=== PATIENT | female | born 1970 | race Caucasian/White ===

== ENCOUNTER 2018-11-02 17:45 | Inpatient (IN) | payer BC, MEDICAID ==
[~2018-11-02] VITALS: Ht 167.6 cm; Wt 52.1 kg
--- NOTE | 2018-11-02 18:26 | NUR ---
PT HERE FOR GERD PAIN PER PT. PT REPORTS HER PAIN IS IN EPIGASTRIC REGION AND HAS NOT IMPROVED SINCE SHE STOPPED HER ABX. PT DENIES ANY TRUAMA OR RECENT ETOH INGESTION. PT CONNECTED TO MONITORS AND CALL LIGHT IN REACH. VSS. PT GIVEN EMESIS BAG. PT INFORMED TO NOT EAT OR DRINK ANYTHING UNTIL TEST HAVE RESLOVED.
[2018-11-02] MEDS ORDERED: SODIUM CHLORIDE 0.9% 1,000 ML IV ONE (18:27)
[2018-11-02] MEDS ORDERED: ONDANSETRON 2MG/ML, 2ML ONE (18:29)
[2018-11-02] MEDS ORDERED: ONDANSETRON 2MG/ML, 2ML IVPush ONE (18:30)
[2018-11-02] MEDS ORDERED: SODIUM CHLORIDE FLUSH 10ML SYR IVF ONE (18:30)
[2018-11-02] MEDS ORDERED: SODIUM CHLORIDE 0.9% 1,000ML IVBOLUS ONE (18:30)
--- NOTE | 2018-11-02 18:40 | NUR ---
PT MEDICATED, PIV IVF STARTED.
[2018-11-02 18:55] LABS: CHLORIDE 107 mmol/L (98-107)
[2018-11-02 19:00] LABS: ALANINE AMINOTRANSFERASE 29 U/L (12-78); ALBUMIN 4.5 g/dL (3.4-5.0); ALKALINE PHOSPHATASE 67 U/L (45-117); ANION GAP 8 mmol/L (5-15); BILIRUBIN,TOTAL 0.3 mg/dL (0.2-1.0); CALCIUM 9.8 mg/dL (8.5-10.1); CREATININE 0.95 mg/dL (0.55-1.02); TOTAL PROTEIN 8.5 g/dL (6.4-8.2)
[2018-11-02 19:16] LABS: BASOPHILS # (AUTO) 0.02 x10^3/uL (0-0.1); BASOPHILS % (AUTO) 0 % (0-1); EOSINOPHILS % (AUTO) 0 % (1-7); LYMPHOCYTES # (AUTO) 0.73 x10^3/uL (1-3.4); LYMPHOCYTES % (AUTO) 8 % (22-44); MD NO; MEAN CORPUSCULAR HEMOGLOBIN 33.3 pg (27.0-34.8); MEAN CORPUSCULAR HGB CONC 33.2 g/dL (32.4-35.8); MEAN CORPUSCULAR VOLUME 100.3 fL (80-100); MEAN PLATELET VOLUME 8.4 fL (7.4-10.4); MONOCYTES # (AUTO) 0.11 x10^3/uL (0.2-0.8); MONOCYTES % (AUTO) 1 % (2-9); NEUTROPHILS # (AUTO) 8.85 x10^3/uL (1.8-6.8); NEUTROPHILS % (AUTO) 91 % (42-75); PLATELET COUNT 341 x10^3/uL (130-400); RED BLOOD COUNT 4.59 x10^6/uL (3.82-5.3); RED CELL DISTRIBUTION WIDTH 13.6 % (9.6-15.2)
--- NOTE | 2018-11-02 20:10 | NUR ---
UA COLLECTED AND WALKED TO LAB.
[2018-11-02 20:46] LABS: MICROSCOPIC AUTO
[2018-11-02 20:49] LABS: CULTURE INDICATED? NO
[2018-11-02] MEDS ORDERED: OMNIPAQUE 350 MG/ML, 100ML BOTTLE ONE (21:08)
--- NOTE | 2018-11-02 22:28 | NUR ---
PT GIVEN ORAL SWABS FOR COMFORT.
[2018-11-02] MEDS ORDERED: SODIUM CHLORIDE FLUSH 10ML SYR IVF PRN (22:30)
[2018-11-02] MEDS ORDERED: DOCUSATE 100 MG CAPSULE PO PRN (23:00)
[2018-11-02] MEDS ORDERED: hydrALAzine 20 MG/ML, 1ML IVPush PRN (23:00)
[2018-11-02] MEDS ORDERED: PROMETHAZINE 25 MG/ML, 1ML IM PRN (23:00)
[2018-11-02] MEDS ORDERED: ACETAMINOPHEN 325 MG TABLET PO PRN (23:00)
[2018-11-02] MEDS ORDERED: ONDANSETRON ODT 4 MG PO PRN (23:00)
[2018-11-02 23:41] VITALS: BP 174/98
[2018-11-02] MEDS: ONDANSETRON 2MG/ML, 2ML IVPush PRN (23:56)
[2018-11-02] MEDS: SODIUM CHLORIDE 0.9% 1,000 ML IV SCH (23:56)
[2018-11-02] MEDS: HEPARIN 5,000 UNITS/ML, 1ML SQ SCH (23:57)
[2018-11-03 00:01] LABS: FREE T4 (FREE THYROXINE) 1.37 ng/dL (0.76-1.46)
[2018-11-03 03:00] VITALS: BP 101/61
[2018-11-03 05:40] LABS: BASOPHILS # (AUTO) 0.03 x10^3/uL (0-0.1); BASOPHILS % (AUTO) 0 % (0-1); EOSINOPHILS # (AUTO) 0.05 x10^3/uL (0-0.4); EOSINOPHILS % (AUTO) 1 % (1-7); LYMPHOCYTES # (AUTO) 2.03 x10^3/uL (1-3.4); LYMPHOCYTES % (AUTO) 21 % (22-44); MD NO; MEAN CORPUSCULAR HEMOGLOBIN 33.2 pg (27.0-34.8); MEAN CORPUSCULAR HGB CONC 33.3 g/dL (32.4-35.8); MEAN CORPUSCULAR VOLUME 99.9 fL (80-100); MONOCYTES # (AUTO) 0.78 x10^3/uL (0.2-0.8); MONOCYTES % (AUTO) 8 % (2-9); NEUTROPHILS # (AUTO) 6.92 x10^3/uL (1.8-6.8); NEUTROPHILS % (AUTO) 71 % (42-75); PLATELET COUNT 268 x10^3/uL (130-400); RED BLOOD COUNT 3.76 x10^6/uL (3.82-5.3); RED CELL DISTRIBUTION WIDTH 13.3 % (9.6-15.2)
[2018-11-03 05:41] LABS: CHLORIDE 112 mmol/L (98-107)
[2018-11-03 05:52] LABS: ALANINE AMINOTRANSFERASE 23 U/L (12-78); ALBUMIN 3.5 g/dL (3.4-5.0); ALKALINE PHOSPHATASE 52 U/L (45-117); ANION GAP 8 mmol/L (5-15); BILIRUBIN,TOTAL 0.3 mg/dL (0.2-1.0); CALCIUM 8.6 mg/dL (8.5-10.1); CHOL/HDL RATIO 3.9; CHOLESTEROL, TOTAL 149 mg/dL (140-239); CREATININE 0.66 mg/dL (0.55-1.02); HDL CHOL % 26 % (28-40); HDL CHOLESTEROL (DIRECT) 38 mg/dL (40-60); LDL CHOLESTEROL,CALCULATED 98 mg/dL (54-169); LDL/HDL RATIO 2.6 (0.5-3.0); TOTAL PROTEIN 6.5 g/dL (6.4-8.2); TRIGLYCERIDES 66 mg/dL (50-200); VLDL CHOLESTEROL 13 mg/dL (0-25)
[2018-11-03] MEDS: SODIUM CHLORIDE 0.9% 1,000 ML IV SCH (06:22)
[2018-11-03] MEDS: INSULIN LISPRO 100 UNITS/ML, PEN SQ-INSULIN SCH ×4 (07:18→21:19)
[2018-11-03 07:46] VITALS: BP 131/82
[2018-11-03] MEDS: HEPARIN 5,000 UNITS/ML, 1ML SQ SCH ×2 (07:47→15:56)
[2018-11-03] MEDS ORDERED: ERGOCALCIFEROL 50,000 UNIT CAPSULE PO SCH (10:30)
[2018-11-03] MEDS ORDERED: POTASSIUM CHLORIDE 40 MEQ in SODIUM CHLORIDE 0.9% 500 ML IV ONE (10:30)
[2018-11-03 13:55] VITALS: BP 125/78
[2018-11-03] MEDS: ONDANSETRON 2MG/ML, 2ML IVPush PRN (16:44)
[2018-11-03 20:32] VITALS: BP 116/69
[2018-11-03] MEDS: NICOTINE 7 MG/24 HR PATCH.TD24 TD SCH ×2 (21:00)
[2018-11-04] MEDS: HEPARIN 5,000 UNITS/ML, 1ML SQ SCH ×3 (00:02→16:00)
[2018-11-04 02:01] VITALS: BP 135/80
[2018-11-04] MEDS: INSULIN LISPRO 100 UNITS/ML, PEN SQ-INSULIN SCH ×3 (07:00→16:00)
[2018-11-04 07:36] VITALS: BP 130/82
[2018-11-04 14:00] VITALS: BP 126/82
[2018-11-04] MEDS ORDERED: ERGO500017 PO (18:12)
[2018-11-04 18:20] VITALS: BP 126/82
== END 2018-11-04 19:30 | disposition home or self-care (01) | DRG 392 ==
LOC: ED 22:32 → EDIP 22:35 → 4NOR 23:38
PROVIDERS: ADMIT Internal Medicine; ATTEND Internal Medicine
DX: K57.30 Diverticulosis of large intestine without perforation or abscess without bleeding (principal); D75.89 Other specified diseases of blood and blood-forming organs; E11.65 Type 2 diabetes mellitus with hyperglycemia; E86.0 Dehydration; F12.90 Cannabis use, unspecified, uncomplicated; F17.210 Nicotine dependence, cigarettes, uncomplicated; K29.00 Acute gastritis without bleeding; Z83.3 Family history of diabetes mellitus
CPT/HCPCS: 36415; 74177; 78264; 80053; 80061; 81001; 82306; 82607; 82962; 83036; 83690; 83735; 84439; 84443; 85025; 96374; G0378; J1644; J2405; J3480; Q9967; A9541; C9898; J0360; J7030; J7040

== ENCOUNTER 2019-08-29 15:43 | Emergency (ER) | payer BC ==
[~2019-08-29] VITALS: Ht 167.6 cm; Wt 46.0 kg
[~2019-08-29 15:43] MED LIST: ERGO500017 PO
[2019-08-29] MEDS ORDERED: SODIUM CHLORIDE 0.9% 1,000ML IVBOLUS ONE (16:30)
--- NOTE | 2019-08-29 16:33 | NUR ---
RECEIVED REPORT FROM JOSÉ HARPER, ASSUMING CARE FROM PT AT THIS TIME
[2019-08-29 16:42] LABS: BASOPHILS # (AUTO) 0.04 x10^3/uL (0-0.1); BASOPHILS % (AUTO) 0 % (0-1); EOSINOPHILS # (AUTO) 0.02 x10^3/uL (0-0.4); EOSINOPHILS % (AUTO) 0 % (1-7); LYMPHOCYTES # (AUTO) 2.45 x10^3/uL (1-3.4); LYMPHOCYTES % (AUTO) 16 % (22-44); MD NO; MEAN CORPUSCULAR HGB CONC 33.8 g/dL (32.4-35.8); MEAN CORPUSCULAR VOLUME 97.5 fL (80-100); MEAN PLATELET VOLUME 8.7 fL (7.4-10.4); MONOCYTES # (AUTO) 1.11 x10^3/uL (0.2-0.8); MONOCYTES % (AUTO) 7 % (2-9); NEUTROPHILS # (AUTO) 11.61 x10^3/uL (1.8-6.8); NEUTROPHILS % (AUTO) 76 % (42-75); PLATELET COUNT 270 x10^3/uL (130-400); RED BLOOD COUNT 4.94 x10^6/uL (3.82-5.3); RED CELL DISTRIBUTION WIDTH 12.9 % (9.6-15.2)
--- NOTE | 2019-08-29 16:52 | NUR ---
PT RESTING COMFORTABLY IN BED AT THIS TIME. HR HAS DECREASED WNL NOW. FLUIDS STILL RUNNING. CALL LIGHT WITHIN REACH. AWAITING LABS AND RECHECK AT THIS TIME
[2019-08-29 16:54] LABS: ALANINE AMINOTRANSFERASE 30 U/L (12-78); ALBUMIN 4.2 g/dL (3.4-5.0); ANION GAP 11 mmol/L (5-15); BILIRUBIN, DIRECT 0.3 mg/dL (0.1-0.2); CALCIUM 9.3 mg/dL (8.5-10.1); CHLORIDE 94 mmol/L (98-107)
[2019-08-29 16:59] LABS: ALKALINE PHOSPHATASE 79 U/L (45-117); BILIRUBIN,INDIRECT 0.8 mg/dL (0.0-2.0); BILIRUBIN,TOTAL 1.1 mg/dL (0.2-1.0); CREATININE 0.93 mg/dL (0.55-1.02); T4 (THYROXINE) 12.4 mcg/dL (4.8-13.9); TROPONIN I < 0.015 ng/mL (0.000-0.045)
[2019-08-29 17:19] VITALS: BP 100/74
--- NOTE | 2019-08-29 17:23 | NUR ---
PT UP TO RESTROOM FOR URINE SAMPLE. UPDATED ON PT TEMP. WILL CONTINUE TO MONITOR
--- NOTE | 2019-08-29 17:30 | NUR ---
UA COLLECTED AND SENT TO LAB. REPEAT EKG COMPLETED.
[2019-08-29 17:40] LABS: MICROSCOPIC AUTO
[2019-08-29 17:41] LABS: CULTURE INDICATED? YES
== END 2019-08-29 18:09 | disposition home or self-care (01) ==
LOC: ED 16:14
DX: R00.2 Palpitations (principal); N30.00 Acute cystitis without hematuria; R11.2 Nausea with vomiting, unspecified; R00.0 Tachycardia, unspecified; E87.6 Hypokalemia; E11.9 Type 2 diabetes mellitus without complications; F17.200 Nicotine dependence, unspecified, uncomplicated
CPT/HCPCS: 36415; 71045; 80048; 80076; 81001; 82040; 84436; 84443; 84484; 85025; 87077; 87086; 93005; 96360; 99285; J7030

== ENCOUNTER 2019-09-02 09:47 | Inpatient (IN) | payer BC ==
[~2019-09-02] VITALS: Ht 167.6 cm; Wt 50.1 kg
[2019-09-02] MEDS ORDERED: ONDANSETRON 2MG/ML, 2ML ONE (10:20)
[2019-09-02] MEDS ORDERED: MORPHINE SULFATE 4 MG/ML, 1ML ONE ×2 (10:20→12:08)
[2019-09-02] MEDS ORDERED: SODIUM CHLORIDE FLUSH 10ML SYR IVF ONE (10:30)
[2019-09-02] MEDS ORDERED: SODIUM CHLORIDE 0.9% 1,000ML IVBOLUS ONE (10:30)
[2019-09-02] MEDS ORDERED: ONDANSETRON 2MG/ML, 2ML IVPush ONE (10:30)
[2019-09-02] MEDS: MORPHINE SULFATE 4 MG/ML, 1ML IVPush PRN ×2 (10:36→12:14)
--- NOTE | 2019-09-02 10:50 | NUR ---
PT HAS CO OF ABDOMINAL PAIN IN LOWER QUADRENT. PT DENIES N/V/D . STARTED YESTERDAY. PT STATES PAIN IS 10/10. IV ESTABLISHED, IVF, MEDICATED PER ORDERS. VSS
[2019-09-02 11:16] LABS: ALANINE AMINOTRANSFERASE 23 U/L (12-78); ALBUMIN 2.8 g/dL (3.4-5.0); ANION GAP 8 mmol/L (5-15); CALCIUM 8.2 mg/dL (8.5-10.1); CHLORIDE 100 mmol/L (98-107); CREATININE 0.67 mg/dL (0.55-1.02)
[2019-09-02 11:17] LABS: MEAN CORPUSCULAR HEMOGLOBIN 32.8 pg (27.0-34.8); MEAN CORPUSCULAR HGB CONC 32.9 g/dL (32.4-35.8); MEAN CORPUSCULAR VOLUME 99.7 fL (80-100); MEAN PLATELET VOLUME 8.4 fL (7.4-10.4); PLATELET COUNT 202 x10^3/uL (130-400); RED BLOOD COUNT 3.99 x10^6/uL (3.82-5.3); RED CELL DISTRIBUTION WIDTH 12.7 % (9.6-15.2)
[2019-09-02 11:18] LABS: ALKALINE PHOSPHATASE 55 U/L (45-117); BILIRUBIN,TOTAL 0.8 mg/dL (0.2-1.0); TOTAL PROTEIN 5.8 g/dL (6.4-8.2)
[2019-09-02 11:30] LABS: BASOPHILS # (AUTO) 0.02 x10^3/uL (0-0.1); BASOPHILS % (AUTO) 0 % (0-1); EOSINOPHILS # (AUTO) 0.01 x10^3/uL (0-0.4); EOSINOPHILS % (AUTO) 0 % (1-7); LYMPHOCYTES # (AUTO) 1.26 x10^3/uL (1-3.4); LYMPHOCYTES % (AUTO) 8 % (22-44); MD SCAN; MONOCYTES # (AUTO) 0.55 x10^3/uL (0.2-0.8); MONOCYTES % (AUTO) 3 % (2-9); NEUTROPHILS # (AUTO) 14.08 x10^3/uL (1.8-6.8); NEUTROPHILS % (AUTO) 89 % (42-75)
[2019-09-02 11:47] LABS: MICROSCOPIC NOT IND
[2019-09-02 11:51] LABS: CULTURE INDICATED? NO
[2019-09-02] MEDS ORDERED: POTASSIUM CHLORIDE 40 MEQ in SODIUM CHLORIDE 0.9% 500 ML IV ONE (12:00)
--- NOTE | 2019-09-02 12:00 | NUR ---
MEDICATED FOR PAIN PRN, VSS. NO NEEDS A THIS TIME.
[2019-09-02] MEDS ORDERED: OMNIPAQUE 350 MG/ML, 100ML BOTTLE ONE (12:08)
[2019-09-02] MEDS ORDERED: METRONIDAZOLE PMX 500MG/100ML 100 ML IVPB ONE (12:30)
[2019-09-02] MEDS ORDERED: AMPICILLIN/SULBACTAM 3 GM in SODIUM CHLORIDE 0.9% 100 ML IV ONE (12:30)
[2019-09-02] MEDS: NS + 20MEQ KCL 1,000 ML IV SCH ×2 (12:38→21:09)
[2019-09-02] MEDS ORDERED: METRONIDAZOLE PMX 500MG/100ML 100 ML ONE (12:47)
[2019-09-02] MEDS ORDERED: ACETAMINOPHEN 325 MG TABLET PO PRN (13:00)
[2019-09-02] MEDS ORDERED: IBUPROFEN 600 MG TABLET PO PRN (13:00)
[2019-09-02] MEDS ORDERED: GABAPENTIN 300 MG CAPSULE PO PRN (13:00)
[2019-09-02] MEDS ORDERED: ONDANSETRON ODT 4 MG PO PRN (13:00)
[2019-09-02] MEDS ORDERED: hydrALAzine 20 MG/ML, 1ML IVPush PRN (13:00)
[2019-09-02] MEDS ORDERED: morphine SULFATE 10 MG/ML, 1ML IVPush PRN (13:00)
--- NOTE | 2019-09-02 13:03 | NUR ---
NO BLOOD CULTURES NEED PRIOR TO ABX, SECOND PIV STARTED. PT GIVEN MOUTH SWABS. NO OTHER NEEDS AT THIS TIME
--- NOTE | 2019-09-02 13:24 | NUR ---
REPORT TO [facility]
[2019-09-02] MEDS ORDERED: POTASSIUM CHLORIDE 10% 20 MEQ/15 ML UDC PO ONE (14:30)
[2019-09-02] MEDS ORDERED: POTASSIUM CHLORIDE 20 MEQ PACKET PO ONE (15:00)
[2019-09-02] MEDS: NITROFURANTOIN (MACROBID) 100 MG CAPSULE PO SCH ×2 (15:12→21:08)
[2019-09-02] MEDS: KETOROLAC 30 MG/1 ML IV PRN ×2 (15:13→21:11)
[2019-09-02 15:16] VITALS: BP 102/67
[2019-09-02 19:13] VITALS: BP 90/61
[2019-09-03 01:03] VITALS: BP 114/73
[2019-09-03] MEDS: NS + 20MEQ KCL 1,000 ML IV SCH ×3 (04:55→20:28)
[2019-09-03] MEDS: KETOROLAC 30 MG/1 ML IV PRN ×2 (05:00→16:43)
[2019-09-03 05:24] LABS: BASOPHILS # (AUTO) 0.01 x10^3/uL (0-0.1); BASOPHILS % (AUTO) 0 % (0-1); EOSINOPHILS # (AUTO) 0.03 x10^3/uL (0-0.4); EOSINOPHILS % (AUTO) 0 % (1-7); LYMPHOCYTES # (AUTO) 0.73 x10^3/uL (1-3.4); LYMPHOCYTES % (AUTO) 6 % (22-44); MD NO; MEAN CORPUSCULAR HEMOGLOBIN 33.2 pg (27.0-34.8); MEAN CORPUSCULAR HGB CONC 33.2 g/dL (32.4-35.8); MEAN CORPUSCULAR VOLUME 99.8 fL (80-100); MEAN PLATELET VOLUME 9.5 fL (7.4-10.4); MONOCYTES % (AUTO) 6 % (2-9); NEUTROPHILS # (AUTO) 10.77 x10^3/uL (1.8-6.8); NEUTROPHILS % (AUTO) 88 % (42-75); PLATELET COUNT 194 x10^3/uL (130-400); RED BLOOD COUNT 4.01 x10^6/uL (3.82-5.3); RED CELL DISTRIBUTION WIDTH 13.6 % (9.6-15.2)
[2019-09-03 05:33] LABS: ALANINE AMINOTRANSFERASE 19 U/L (12-78); ALBUMIN 2.8 g/dL (3.4-5.0); ANION GAP 7 mmol/L (5-15); CALCIUM 8.2 mg/dL (8.5-10.1); CHLORIDE 105 mmol/L (98-107); CREATININE 0.52 mg/dL (0.55-1.02)
[2019-09-03 05:35] LABS: ALKALINE PHOSPHATASE 59 U/L (45-117); BILIRUBIN,TOTAL 0.5 mg/dL (0.2-1.0); TOTAL PROTEIN 5.9 g/dL (6.4-8.2)
[2019-09-03 08:13] VITALS: BP 112/71
[2019-09-03 12:29] VITALS: BP 116/75
[2019-09-03] MEDS: METRONIDAZOLE PMX 500MG/100ML 100 ML IV SCH (16:41)
[2019-09-03] MEDS: ENOXAPARIN 40 MG/0.4 ML SQ SCH (16:43)
[2019-09-03] MEDS: CEFTRIAXONE PMX 1GM/50ML 50 ML IV SCH (18:15)
[2019-09-03 21:29] VITALS: BP 125/79
[2019-09-04] MEDS: KETOROLAC 30 MG/1 ML IV PRN ×2 (00:04→15:50)
[2019-09-04 02:01] VITALS: BP 112/74
[2019-09-04 05:17] LABS: BASOPHILS # (AUTO) 0.03 x10^3/uL (0-0.1); BASOPHILS % (AUTO) 0 % (0-1); EOSINOPHILS # (AUTO) 0.15 x10^3/uL (0-0.4); EOSINOPHILS % (AUTO) 2 % (1-7); LYMPHOCYTES % (AUTO) 12 % (22-44); MD NO; MEAN CORPUSCULAR HEMOGLOBIN 32.7 pg (27.0-34.8); MEAN CORPUSCULAR HGB CONC 32.8 g/dL (32.4-35.8); MEAN CORPUSCULAR VOLUME 99.5 fL (80-100); MEAN PLATELET VOLUME 9.2 fL (7.4-10.4); MONOCYTES # (AUTO) 0.62 x10^3/uL (0.2-0.8); MONOCYTES % (AUTO) 6 % (2-9); NEUTROPHILS # (AUTO) 8.27 x10^3/uL (1.8-6.8); NEUTROPHILS % (AUTO) 81 % (42-75); PLATELET COUNT 201 x10^3/uL (130-400); RED BLOOD COUNT 3.88 x10^6/uL (3.82-5.3); RED CELL DISTRIBUTION WIDTH 13.6 % (9.6-15.2)
[2019-09-04 05:21] LABS: ALBUMIN 2.3 g/dL (3.4-5.0); ANION GAP 7 mmol/L (5-15); CALCIUM 7.8 mg/dL (8.5-10.1); CHLORIDE 109 mmol/L (98-107)
[2019-09-04 05:26] LABS: ALANINE AMINOTRANSFERASE 17 U/L (12-78); ALKALINE PHOSPHATASE 66 U/L (45-117); BILIRUBIN,TOTAL 0.4 mg/dL (0.2-1.0); CREATININE 0.52 mg/dL (0.55-1.02); TOTAL PROTEIN 5.3 g/dL (6.4-8.2)
[2019-09-04] MEDS: NS + 20MEQ KCL 1,000 ML IV SCH (05:47)
[2019-09-04 07:04] VITALS: BP 135/85
[2019-09-04] MEDS: METRONIDAZOLE PMX 500MG/100ML 100 ML IV SCH ×3 (07:58→16:49)
[2019-09-04] MEDS ORDERED: MAGNESIUM SULFATE PMX 2GM/50ML 50 ML IV ONE (09:00)
[2019-09-04] MEDS ORDERED: POTASSIUM PHOSPHATE 44 MEQ in SODIUM CHLORIDE 0.9% 500 ML IV ONE (09:00)
[2019-09-04 12:16] VITALS: BP 146/99
[2019-09-04] MEDS: ENOXAPARIN 40 MG/0.4 ML SQ SCH (16:49)
[2019-09-04] MEDS: CEFTRIAXONE PMX 1GM/50ML 50 ML IV SCH (18:07)
[2019-09-04 19:36] VITALS: BP 117/76
[2019-09-05] MEDS: METRONIDAZOLE PMX 500MG/100ML 100 ML IV SCH ×3 (00:26→16:57)
[2019-09-05 01:12] VITALS: BP 131/80
[2019-09-05] MEDS: ONDANSETRON 2MG/ML, 2ML IVPush PRN ×4 (02:24→23:40)
[2019-09-05 05:12] LABS: BASOPHILS # (AUTO) 0.06 x10^3/uL (0-0.1); BASOPHILS % (AUTO) 0 % (0-1); EOSINOPHILS # (AUTO) 0.08 x10^3/uL (0-0.4); EOSINOPHILS % (AUTO) 1 % (1-7); LYMPHOCYTES # (AUTO) 0.59 x10^3/uL (1-3.4); LYMPHOCYTES % (AUTO) 4 % (22-44); MD NO; MEAN CORPUSCULAR HGB CONC 33.4 g/dL (32.4-35.8); MEAN CORPUSCULAR VOLUME 98.7 fL (80-100); MEAN PLATELET VOLUME 9.4 fL (7.4-10.4); MONOCYTES # (AUTO) 0.73 x10^3/uL (0.2-0.8); MONOCYTES % (AUTO) 5 % (2-9); NEUTROPHILS # (AUTO) 12.95 x10^3/uL (1.8-6.8); NEUTROPHILS % (AUTO) 90 % (42-75); PLATELET COUNT 269 x10^3/uL (130-400); RED BLOOD COUNT 4.01 x10^6/uL (3.82-5.3); RED CELL DISTRIBUTION WIDTH 13.6 % (9.6-15.2)
[2019-09-05 05:18] LABS: ANION GAP 8 mmol/L (5-15); CHLORIDE 102 mmol/L (98-107); CREATININE 0.44 mg/dL (0.55-1.02)
[2019-09-05] MEDS ORDERED: PROMETHAZINE 25 MG/ML, 1ML IM ONE (06:00)
[2019-09-05 06:59] VITALS: BP 170/91
[2019-09-05] MEDS ORDERED: MAGNESIUM SULFATE PMX 2GM/50ML 50 ML IV ONE (08:30)
[2019-09-05] MEDS: MAGNESIUM OXIDE 400 MG TABLET PO SCH (09:52)
[2019-09-05 11:21] LABS: CLOSTRIDIUM DIFFICILE ANTIGEN NEGATIVE; CLOSTRIDIUM DIFFICILE TOXIN NEGATIVE (Negative)
[2019-09-05] MEDS: POTASSIUM CHLORIDE 20 MEQ TAB.ER.PRT PO SCH ×2 (12:06→16:57)
[2019-09-05 13:32] VITALS: BP 158/97
[2019-09-05] MEDS: NICOTINE 14MG/24 HR PATCH.TD24 TD SCH (13:46)
[2019-09-05] MEDS: ENOXAPARIN 40 MG/0.4 ML SQ SCH (16:57)
[2019-09-05] MEDS: LACTOBACILLUS CHEW TABLET PO SCH ×2 (16:57→20:24)
[2019-09-05] MEDS: CEFTRIAXONE PMX 1GM/50ML 50 ML IV SCH (18:19)
[2019-09-05 19:44] VITALS: BP 161/95
[2019-09-06] MEDS: METRONIDAZOLE PMX 500MG/100ML 100 ML IV SCH ×3 (00:59→16:55)
[2019-09-06] MEDS: KETOROLAC 30 MG/1 ML IV PRN ×2 (01:05→14:12)
[2019-09-06 01:31] VITALS: BP 126/85
[2019-09-06 05:40] LABS: BASOPHILS # (AUTO) 0.01 x10^3/uL (0-0.1); BASOPHILS % (AUTO) 0 % (0-1); EOSINOPHILS # (AUTO) 0.01 x10^3/uL (0-0.4); EOSINOPHILS % (AUTO) 0 % (1-7); LYMPHOCYTES # (AUTO) 0.93 x10^3/uL (1-3.4); LYMPHOCYTES % (AUTO) 6 % (22-44); MD NO; MEAN CORPUSCULAR HEMOGLOBIN 33.1 pg (27.0-34.8); MEAN CORPUSCULAR HGB CONC 33.8 g/dL (32.4-35.8); MEAN PLATELET VOLUME 8.6 fL (7.4-10.4); MONOCYTES % (AUTO) 5 % (2-9); NEUTROPHILS # (AUTO) 12.81 x10^3/uL (1.8-6.8); NEUTROPHILS % (AUTO) 89 % (42-75); PLATELET COUNT 307 x10^3/uL (130-400); RED BLOOD COUNT 4.24 x10^6/uL (3.82-5.3); RED CELL DISTRIBUTION WIDTH 13.1 % (9.6-15.2)
[2019-09-06 05:54] LABS: ANION GAP 7 mmol/L (5-15); CALCIUM 8.1 mg/dL (8.5-10.1); CHLORIDE 101 mmol/L (98-107)
[2019-09-06 05:55] LABS: CREATININE 0.57 mg/dL (0.55-1.02)
[2019-09-06 06:52] VITALS: BP 122/82
[2019-09-06] MEDS: POTASSIUM CHLORIDE 20 MEQ TAB.ER.PRT PO SCH (09:09)
[2019-09-06] MEDS: MAGNESIUM OXIDE 400 MG TABLET PO SCH (09:09)
[2019-09-06] MEDS: LACTOBACILLUS CHEW TABLET PO SCH ×3 (09:09→20:22)
[2019-09-06] MEDS: NICOTINE 14MG/24 HR PATCH.TD24 TD SCH (14:06)
[2019-09-06] MEDS: ONDANSETRON 2MG/ML, 2ML IVPush PRN ×2 (14:06→22:24)
[2019-09-06 15:59] VITALS: BP 155/104
[2019-09-06] MEDS: ENOXAPARIN 40 MG/0.4 ML SQ SCH (16:51)
[2019-09-06] MEDS: OXYcodone IR 5MG TABLET PO PRN (16:52)
[2019-09-06] MEDS: CEFTRIAXONE PMX 1GM/50ML 50 ML IV SCH (18:16)
[2019-09-06 19:52] VITALS: BP 149/98
[2019-09-07] MEDS: METRONIDAZOLE PMX 500MG/100ML 100 ML IV SCH ×3 (00:41→16:48)
[2019-09-07] MEDS: OXYcodone IR 5MG TABLET PO PRN ×3 (00:45→20:00)
[2019-09-07 00:47] VITALS: BP 129/103
[2019-09-07 06:25] LABS: MEAN CORPUSCULAR HEMOGLOBIN 32.9 pg (27.0-34.8); MEAN CORPUSCULAR HGB CONC 33.3 g/dL (32.4-35.8); MEAN CORPUSCULAR VOLUME 98.7 fL (80-100); MEAN PLATELET VOLUME 7.9 fL (7.4-10.4); PLATELET COUNT 370 x10^3/uL (130-400); RED BLOOD COUNT 4.14 x10^6/uL (3.82-5.3)
[2019-09-07 06:37] LABS: CHLORIDE 98 mmol/L (98-107)
[2019-09-07 06:40] LABS: BASOPHILS # (AUTO) 0.01 x10^3/uL (0-0.1); BASOPHILS % (AUTO) 0 % (0-1); EOSINOPHILS # (AUTO) 0.01 x10^3/uL (0-0.4); EOSINOPHILS % (AUTO) 0 % (1-7); LYMPHOCYTES # (AUTO) 0.99 x10^3/uL (1-3.4); LYMPHOCYTES % (AUTO) 6 % (22-44); MD SCAN; MONOCYTES # (AUTO) 0.89 x10^3/uL (0.2-0.8); MONOCYTES % (AUTO) 5 % (2-9); NEUTROPHILS # (AUTO) 14.89 x10^3/uL (1.8-6.8); NEUTROPHILS % (AUTO) 89 % (42-75)
[2019-09-07 06:41] LABS: ANION GAP 8 mmol/L (5-15); CREATININE 0.46 mg/dL (0.55-1.02)
[2019-09-07 06:47] VITALS: BP 131/89
[2019-09-07] MEDS: LACTOBACILLUS CHEW TABLET PO SCH ×3 (07:45→20:00)
[2019-09-07] MEDS: MAGNESIUM OXIDE 400 MG TABLET PO SCH (07:45)
[2019-09-07 13:27] VITALS: BP 143/96
[2019-09-07] MEDS: NICOTINE 14MG/24 HR PATCH.TD24 TD SCH (13:53)
[2019-09-07] MEDS: ENOXAPARIN 40 MG/0.4 ML SQ SCH (16:44)
[2019-09-07] MEDS: ONDANSETRON 2MG/ML, 2ML IVPush PRN (16:47)
[2019-09-07 18:43] VITALS: BP 150/101
[2019-09-07] MEDS: CEFTRIAXONE PMX 1GM/50ML 50 ML IV SCH (18:45)
[2019-09-08 00:47] VITALS: BP 151/100
[2019-09-08] MEDS: METRONIDAZOLE PMX 500MG/100ML 100 ML IV SCH ×3 (00:51→19:30)
[2019-09-08 00:55] VITALS: BP 156/99
[2019-09-08 01:23] VITALS: BP 135/85
[2019-09-08 05:01] LABS: MEAN CORPUSCULAR HEMOGLOBIN 33.1 pg (27.0-34.8); MEAN CORPUSCULAR HGB CONC 33.3 g/dL (32.4-35.8); MEAN CORPUSCULAR VOLUME 99.2 fL (80-100); MEAN PLATELET VOLUME 7.8 fL (7.4-10.4); PLATELET COUNT 407 x10^3/uL (130-400); RED CELL DISTRIBUTION WIDTH 13.3 % (9.6-15.2)
[2019-09-08 05:12] LABS: ALBUMIN 2.4 g/dL (3.4-5.0); ANION GAP 9 mmol/L (5-15); CALCIUM 8.3 mg/dL (8.5-10.1); CHLORIDE 95 mmol/L (98-107)
[2019-09-08 05:15] LABS: ALANINE AMINOTRANSFERASE 26 U/L (12-78); ALKALINE PHOSPHATASE 71 U/L (45-117); BILIRUBIN,TOTAL 0.4 mg/dL (0.2-1.0); CREATININE 0.45 mg/dL (0.55-1.02)
[2019-09-08 05:59] LABS: BASOPHILS % (AUTO) 0 % (0-1); EOSINOPHILS # (AUTO) 0.01 x10^3/uL (0-0.4); EOSINOPHILS % (AUTO) 0 % (1-7); LYMPHOCYTES # (AUTO) 1.08 x10^3/uL (1-3.4); LYMPHOCYTES % (AUTO) 6 % (22-44); MD SCAN; MONOCYTES # (AUTO) 0.89 x10^3/uL (0.2-0.8); MONOCYTES % (AUTO) 5 % (2-9); NEUTROPHILS # (AUTO) 16.42 x10^3/uL (1.8-6.8); NEUTROPHILS % (AUTO) 89 % (42-75)
[2019-09-08 06:59] VITALS: BP 134/90
[2019-09-08] MEDS ORDERED: SINCALIDE (KINEVAC) 5 MCG ONE (09:03)
[2019-09-08] MEDS ORDERED: GADOTERATE 7.5 MMOL/15 ML VIAL ONE (10:52)
[2019-09-08] MEDS: MAGNESIUM OXIDE 400 MG TABLET PO SCH (11:21)
[2019-09-08] MEDS: LACTOBACILLUS CHEW TABLET PO SCH ×3 (11:21→20:05)
[2019-09-08] MEDS: NICOTINE 14MG/24 HR PATCH.TD24 TD SCH (14:20)
[2019-09-08] MEDS: OXYcodone IR 5MG TABLET PO PRN (14:20)
[2019-09-08 14:23] VITALS: BP 131/92
[2019-09-08] MEDS: ONDANSETRON 2MG/ML, 2ML IVPush PRN (17:45)
[2019-09-08] MEDS: ENOXAPARIN 40 MG/0.4 ML SQ SCH (17:47)
[2019-09-08] MEDS: MORPHINE SULFATE 4 MG/ML, 1ML IVPush PRN (17:47)
[2019-09-08] MEDS: CEFTRIAXONE PMX 1GM/50ML 50 ML IV SCH (17:48)
[2019-09-08 18:44] VITALS: BP 127/81
[2019-09-09 02:11] VITALS: BP 143/86
[2019-09-09] MEDS: METRONIDAZOLE PMX 500MG/100ML 100 ML IV SCH ×3 (03:01→19:47)
[2019-09-09 07:10] VITALS: BP 147/81
[2019-09-09 07:40] LABS: MEAN CORPUSCULAR HEMOGLOBIN 32.8 pg (27.0-34.8); MEAN CORPUSCULAR HGB CONC 33.2 g/dL (32.4-35.8); MEAN CORPUSCULAR VOLUME 98.8 fL (80-100); MEAN PLATELET VOLUME 7.3 fL (7.4-10.4); PLATELET COUNT 453 x10^3/uL (130-400); RED BLOOD COUNT 3.94 x10^6/uL (3.82-5.3); RED CELL DISTRIBUTION WIDTH 13.1 % (9.6-15.2)
[2019-09-09 07:47] LABS: ANION GAP 7 mmol/L (5-15); CALCIUM 8.1 mg/dL (8.5-10.1); CHLORIDE 98 mmol/L (98-107)
[2019-09-09 07:48] LABS: CREATININE 0.42 mg/dL (0.55-1.02)
[2019-09-09 08:07] LABS: BASOPHILS # (AUTO) 0.01 x10^3/uL (0-0.1); BASOPHILS % (AUTO) 0 % (0-1); EOSINOPHILS # (AUTO) 0.01 x10^3/uL (0-0.4); EOSINOPHILS % (AUTO) 0 % (1-7); LYMPHOCYTES # (AUTO) 1.17 x10^3/uL (1-3.4); LYMPHOCYTES % (AUTO) 7 % (22-44); MD SCAN; MONOCYTES # (AUTO) 0.56 x10^3/uL (0.2-0.8); MONOCYTES % (AUTO) 3 % (2-9); NEUTROPHILS # (AUTO) 15.94 x10^3/uL (1.8-6.8); NEUTROPHILS % (AUTO) 90 % (42-75)
[2019-09-09] MEDS: MAGNESIUM OXIDE 400 MG TABLET PO SCH (09:00)
[2019-09-09] MEDS: LACTOBACILLUS CHEW TABLET PO SCH ×3 (09:00→20:26)
[2019-09-09] MEDS: ENOXAPARIN 40 MG/0.4 ML SQ SCH (11:46)
[2019-09-09 12:29] LABS: INTERNATIONAL NORMALIZED RATIO 1.11 (0.93-1.1); PROTHROMBIN TIME 11.8 Seconds (9.6-11.5)
[2019-09-09 13:55] VITALS: BP 142/85
[2019-09-09] MEDS: NICOTINE 14MG/24 HR PATCH.TD24 TD SCH (13:59)
[2019-09-09] MEDS: CEFTRIAXONE PMX 1GM/50ML 50 ML IV SCH (18:13)
[2019-09-09 18:38] VITALS: BP 109/72
[2019-09-10 00:02] VITALS: BP 128/79
[2019-09-10] MEDS: METRONIDAZOLE PMX 500MG/100ML 100 ML IV SCH ×3 (03:22→22:17)
[2019-09-10 05:20] LABS: BASOPHILS # (AUTO) 0.01 x10^3/uL (0-0.1); BASOPHILS % (AUTO) 0 % (0-1); EOSINOPHILS # (AUTO) 0.04 x10^3/uL (0-0.4); EOSINOPHILS % (AUTO) 0 % (1-7); LYMPHOCYTES # (AUTO) 1.33 x10^3/uL (1-3.4); LYMPHOCYTES % (AUTO) 8 % (22-44); MD NO; MEAN CORPUSCULAR HEMOGLOBIN 32.6 pg (27.0-34.8); MEAN CORPUSCULAR HGB CONC 32.9 g/dL (32.4-35.8); MEAN PLATELET VOLUME 7.5 fL (7.4-10.4); MONOCYTES # (AUTO) 0.85 x10^3/uL (0.2-0.8); MONOCYTES % (AUTO) 5 % (2-9); NEUTROPHILS # (AUTO) 15.14 x10^3/uL (1.8-6.8); NEUTROPHILS % (AUTO) 87 % (42-75); PLATELET COUNT 427 x10^3/uL (130-400); RED BLOOD COUNT 3.71 x10^6/uL (3.82-5.3); RED CELL DISTRIBUTION WIDTH 13.3 % (9.6-15.2)
[2019-09-10 05:26] LABS: ALANINE AMINOTRANSFERASE 25 U/L (12-78); ALBUMIN 2.4 g/dL (3.4-5.0); ANION GAP 7 mmol/L (5-15); CALCIUM 8.1 mg/dL (8.5-10.1); CHLORIDE 99 mmol/L (98-107); CREATININE 0.47 mg/dL (0.55-1.02)
[2019-09-10 05:28] LABS: ALKALINE PHOSPHATASE 60 U/L (45-117); BILIRUBIN,TOTAL 0.5 mg/dL (0.2-1.0); TOTAL PROTEIN 5.6 g/dL (6.4-8.2)
[2019-09-10 07:33] VITALS: BP 123/83
[2019-09-10] MEDS: LACTOBACILLUS CHEW TABLET PO SCH ×3 (09:00→21:00)
[2019-09-10] MEDS: MAGNESIUM OXIDE 400 MG TABLET PO SCH (09:00)
[2019-09-10] MEDS ORDERED: BUPIVACAINE/PF-EPI 0.5% 1:200K ONE (10:02)
[2019-09-10] MEDS ORDERED: FENTANYL PF 250 MCG/5ML ONE (10:53)
[2019-09-10] MEDS ORDERED: MIDAZOLAM 1 MG/ML, 2ML ONE (10:53)
[2019-09-10] MEDS ORDERED: CEFOTETAN PMX 2GM/50ML 50 ML ONE (11:02)
[2019-09-10] MEDS ORDERED: PHENYLEPHRINE 10 MG/ML ONE (11:02)
[2019-09-10] MEDS ORDERED: NEOSTIGMINE 1 MG/ML, 10ML ONE ×2 (11:04→12:11)
[2019-09-10] MEDS ORDERED: ROCURONIUM 10MG/ML,5ML ONE (11:04)
[2019-09-10] MEDS ORDERED: SUCCINYLCHOLINE 20 MG/ML, 10ML ONE (11:04)
[2019-09-10] MEDS ORDERED: GLYCOPYRROLATE 0.2MG/1ML, 5ML ONE (11:04)
[2019-09-10] MEDS ORDERED: PROPOFOL 10 MG/ML, 20ML ONE (11:04)
[2019-09-10] MEDS ORDERED: ONDANSETRON 2MG/ML, 2ML ONE (11:04)
[2019-09-10] MEDS ORDERED: DEXAMETHASONE 4 MG/ML, 1ML ONE (11:04)
[2019-09-10] MEDS ORDERED: HALOPERIDOL 5 MG/ML IV PRN (11:30)
[2019-09-10] MEDS ORDERED: HYDROmorphone 2 MG/ML, 1ML IVPush PRN (11:30)
[2019-09-10] MEDS ORDERED: LABETALOL 5MG/ML, 20ML IV PRN (11:30)
[2019-09-10] MEDS ORDERED: MEPERIDINE/PF 25MG/ML,1ML IVPush PRN (11:30)
[2019-09-10] MEDS ORDERED: PROMETHAZINE 25 MG/ML, 1ML IV PRN (11:30)
[2019-09-10] MEDS ORDERED: hydrALAzine 20 MG/ML, 1ML IV PRN (11:30)
[2019-09-10] MEDS ORDERED: MORPHINE SULFATE 4 MG/ML, 1ML IVPush PRN (11:30)
[2019-09-10] MEDS ORDERED: OXYcodone 5 MG/5 ML ORAL.SOL UDC PO PRN (11:30)
[2019-09-10] MEDS ORDERED: BUPIVACAINE/PF-EPI 0.5% 1:200K INFIL ONE (11:57)
[2019-09-10] MEDS: ENOXAPARIN 40 MG/0.4 ML SQ SCH (12:00)
[2019-09-10] MEDS ORDERED: KETOROLAC 30 MG/1 ML ONE (12:08)
[2019-09-10] MEDS ORDERED: SUGAMMADEX 200 MG/2 ML IVPush ONE (12:11)
[2019-09-10] MEDS ORDERED: FENTANYL PF 100 MCG/2ML ONE (12:33)
[2019-09-10] MEDS ORDERED: OXYcodone 5 MG/5 ML ORAL.SOL UDC ONE (12:33)
[2019-09-10] MEDS: FENTANYL PF 100 MCG/2ML IV PRN ×2 (12:50→13:00)
[2019-09-10 13:35] VITALS: BP 106/71
[2019-09-10] MEDS: NICOTINE 14MG/24 HR PATCH.TD24 TD SCH (16:05)
[2019-09-10] MEDS: D5%-0.45NACL+KCL 20MEQ 1,000 ML IV SCH (16:05)
[2019-09-10] MEDS: MORPHINE SULFATE 4 MG/ML, 1ML IVPush PRN ×2 (17:55→23:33)
[2019-09-10 18:17] VITALS: BP 102/70
[2019-09-10] MEDS: CEFTRIAXONE PMX 1GM/50ML 50 ML IV SCH (18:36)
[2019-09-11 00:09] VITALS: BP 117/75
[2019-09-11] MEDS: ONDANSETRON 2MG/ML, 2ML IVPush PRN (01:30)
[2019-09-11] MEDS: OXYcodone IR 5MG TABLET PO PRN (01:31)
[2019-09-11] MEDS: D5%-0.45NACL+KCL 20MEQ 1,000 ML IV SCH ×2 (04:39→14:00)
[2019-09-11 05:05] LABS: MEAN CORPUSCULAR HEMOGLOBIN 32.8 pg (27.0-34.8); MEAN CORPUSCULAR VOLUME 99.2 fL (80-100); MEAN PLATELET VOLUME 7.4 fL (7.4-10.4); PLATELET COUNT 435 x10^3/uL (130-400); RED BLOOD COUNT 3.29 x10^6/uL (3.82-5.3); RED CELL DISTRIBUTION WIDTH 13.6 % (9.6-15.2)
[2019-09-11 05:17] LABS: ALANINE AMINOTRANSFERASE 31 U/L (12-78); ALBUMIN 2.2 g/dL (3.4-5.0); ANION GAP 5 mmol/L (5-15); CALCIUM 7.9 mg/dL (8.5-10.1); CHLORIDE 101 mmol/L (98-107); CREATININE 0.47 mg/dL (0.55-1.02)
[2019-09-11 05:18] LABS: BASOPHILS # (AUTO) 0.01 x10^3/uL (0-0.1); BASOPHILS % (AUTO) 0 % (0-1); EOSINOPHILS # (AUTO) 0.02 x10^3/uL (0-0.4); EOSINOPHILS % (AUTO) 0 % (1-7); LYMPHOCYTES % (AUTO) 6 % (22-44); MD SCAN; MONOCYTES # (AUTO) 0.96 x10^3/uL (0.2-0.8); MONOCYTES % (AUTO) 5 % (2-9); NEUTROPHILS # (AUTO) 15.74 x10^3/uL (1.8-6.8); NEUTROPHILS % (AUTO) 89 % (42-75)
[2019-09-11 05:19] LABS: ALKALINE PHOSPHATASE 57 U/L (45-117); BILIRUBIN,TOTAL 0.4 mg/dL (0.2-1.0); TOTAL PROTEIN 5.3 g/dL (6.4-8.2)
[2019-09-11] MEDS: METRONIDAZOLE PMX 500MG/100ML 100 ML IV SCH ×2 (06:15→14:44)
[2019-09-11 06:58] VITALS: BP 143/88
[2019-09-11] MEDS: LACTOBACILLUS CHEW TABLET PO SCH (09:02)
[2019-09-11] MEDS: MAGNESIUM OXIDE 400 MG TABLET PO SCH (09:02)
[2019-09-11] MEDS ORDERED: ENOXAPARIN 40 MG/0.4 ML SQ SCH (12:00)
[2019-09-11 13:46] VITALS: BP 142/89
[2019-09-11] MEDS ORDERED: MAGN400T50 PO (14:28)
[2019-09-11] MEDS: NICOTINE 14MG/24 HR PATCH.TD24 TD SCH (14:44)
[2019-09-11] MEDS ORDERED: OXYC-302 PO (15:08)
== END 2019-09-11 16:32 | disposition home or self-care (01) | DRG 357 ==
LOC: ED 10:14 → SUATTDRO 12:27 → EDIP 12:39 → 3N 14:04
PROVIDERS: ADMIT Hospitalist; ATTEND Internal Medicine
PROC: 0FT44ZZ Resection of Gallbladder, Percutaneous Endoscopic Approach (ICD-10-PCS; principal; 2019-09-10 11:00)
DX: A09 Infectious gastroenteritis and colitis, unspecified (principal); E87.1 Hypo-osmolality and hyponatremia; K80.10 Calculus of gallbladder with chronic cholecystitis without obstruction; E11.9 Type 2 diabetes mellitus without complications; E83.39 Other disorders of phosphorus metabolism; E83.42 Hypomagnesemia; E87.6 Hypokalemia; E88.09 Other disorders of plasma-protein metabolism, not elsewhere classified; F12.90 Cannabis use, unspecified, uncomplicated; K57.90 Diverticulosis of intestine, part unspecified, without perforation or abscess without bleeding; F17.210 Nicotine dependence, cigarettes, uncomplicated; Z82.49 Family history of ischemic heart disease and other diseases of the circulatory system; Z83.3 Family history of diabetes mellitus; Z71.6 Tobacco abuse counseling; Z79.899 Other long term (current) drug therapy
CPT/HCPCS: 36415; 71045; 74177; 74183; 76705; 78227; 80048; 80053; 81003; 83036; 83605; 83690; 83735; 84100; 85025; 85610; 85730; 86704; 86706; 86708; 86709; 86803; 87040; 87324; 87340; 88304; 93005; 96361; 96365; 96366; 96368; 96375; 96376; G0378; J0295; J0696; J1100; J1650; J1885; J2250; J2405; J2550; J2704; J2710; J3010; J3480; Q9967; A9537; A9575; J0330; J2270; J2370; J2805; J3475; J3490; J7030; J7040